=== PATIENT | female | born 1940 | race Caucasian/White ===

== ENCOUNTER → 2018-09-17 | Outpatient (CLI) | payer MEDICARE ==
--- NOTE | 2018-09-18 00:07 | PCVCIMAG ---
EXAM: BILATERAL LOWER EXTREMITY ARTERIAL DUPLEX INDICATION: Peripheral Arterial Disease. Leg pain. Left leg cellulitis. FINDINGS: Right Leg: Satisfactory arterial waveforms throughout the common/profunda/superficial femoral, popliteal, anterior tibial, peroneal, and posterior tibial arteries. No flow limiting stenosis seen. Left Leg: Satisfactory arterial waveforms throughout the common/profunda/superficial femoral, popliteal, anterior tibial, peroneal, and posterior tibial arteries. No flow limiting stenosis seen. IMPRESSION: No flow limiting stenosis in the right lower extremity. No flow limiting stenosis in the left lower extremity. LOC:OFFICE
== END | disposition home or self-care (01) ==
LOC: PCVCIMAG 13:24
PROVIDERS: ATTEND Emergency Medicine
DX: I73.9 Peripheral vascular disease, unspecified (principal); S81.809A Unspecified open wound, unspecified lower leg, initial encounter; L03.116 Cellulitis of left lower limb; X58.XXXA Exposure to other specified factors, initial encounter; Y93.89 Activity, other specified; Y92.89 Other specified places as the place of occurrence of the external cause; Y99.8 Other external cause status
CPT/HCPCS: 93925